=== PATIENT | female | born 1975 | race Native Hawaiian/Other Pacific Islander ===

== ENCOUNTER 2016-11-17 07:20 | Day surgery (SDC) | payer MEDICAID, MEDICARE ==
[2016-11-13 10:59] VITALS: BMI 29.0
[2016-11-17] MEDS ORDERED: ceFAZolin IV 2 gm in Dextrose 1 GM/50 ML BAG IVPB ONE (09:19)
[2016-11-17] MEDS ORDERED: HYDROmorphone 0.5 mg/0.5 ml ISec IVP PRN (10:01)
[2016-11-17 11:35] VITALS: O2SAT 99
[2016-11-17 12:13] VITALS: BP 105/64; PULSE 70; RESP 18; TEMP 97.8
--- NOTE | 2016-11-17 22:08 | OP ---
PROCEDURE DATE: 11/17/2016 PREOPERATIVE DIAGNOSES: Fibroid uterus and menorrhagia. POSTOPERATIVE DIAGNOSES: Fibroid uterus, menorrhagia and intrauterine adhesions. SURGEON: Donell Flores MD TYPE OF ANESTHESIA: General. FINDINGS: A 1 cm anterior submucosal myoma with intrauterine adhesions binding the anterior and posterior miranda of the uterine fundus, which were resected, endocervical canal was normal. ESTIMATED BLOOD LOSS: Less 1 mL. COMPLICATIONS: None. DESCRIPTION OF PROCEDURE: After the risks, benefits, and alternatives of the planned procedure including but not limited to infection, hemorrhage, deep vein thrombosis, atelectasis, pneumonia, pulmonary embolism, damage to the bladder, damage to the ureter, urinary insufficiency, renal failure, wound infection, wound dehiscence, incisional hernia, clot formation, damage to the large and small intestine, damage to the inferior vena cava and aorta requiring extensive repair, anesthesia complications, electrolyte imbalance, possibility of , fluid overload, cerebral edema, air embolism, and other complications that were discussed but are not listed above have been explained to the patient and all her questions were answered, informed consent was obtained. The patient was taken to the operating room in a stable condition. Under suitable level of general anesthesia, she was prepped and draped in a sterile fashion after having been placed in a dorsal lithotomy position. Bladder was emptied with a straight catheterization. Examination under anesthesia revealed a normal sized uterus and the . A weighted-speculum was inserted into the vagina and the anterior lip of the cervix was grasped using a single tooth tenaculum. An endocervical curettage was performed and scar tissue was obtained. Uterus was sounded to 7 cm. The cervix was dilated to Hanks dilator. A hysteroscope was inserted into the uterus using a MyoSure device. A hysteroscopic myomectomy was performed to resect the anterior submucosal myoma to the level of the endometrium. Adhesions involving spanning the anterior and posterior miranda of the uterus were also lysed with hysteroscopic scissors. At the end of the procedure, gentle endometrial curettage was performed after removal of the hysteroscope. There was good hemostasis. The patient was then transferred to the recovery room in a stable condition. Sponge, needle, and instrument counts were correct x2. There were no complications. Donell Flores MD
== END 2016-11-17 12:12 | disposition home or self-care (01) ==
LOC: C.SDS 07:20
PROVIDERS: ATTEND Obstetrics & Gynecology Reproductive Endocrinology
DX: D25.0 Submucous leiomyoma of uterus (principal); N73.6 Female pelvic peritoneal adhesions (postinfective)
CPT/HCPCS: 36415; 58120; 58561; 86850; 86900; 88305; J0690